=== PATIENT | male | born 1990 | race African-American/Black ===

== ENCOUNTER 2017-09-04 11:39 | Emergency (ER) | payer MEDICAID, OTHER ==
[~2017-09-04] VITALS: Ht 182.9 cm; Wt 105.0 kg
[2017-09-04 11:43] VITALS: BP 136/76
[2017-09-04] MEDS ORDERED: ACETAMINOPHEN 325MG TABLET PO ONE (12:00)
== END 2017-09-04 14:57 | disposition left against medical advice (07) ==
LOC: ER 11:39
DX: M79.601 Pain in right arm (principal)
CPT/HCPCS: 99282